=== PATIENT | male | born 1985 | race Caucasian/White ===

== ENCOUNTER 2017-06-23 19:10 | Emergency (ER) | payer SELFPAY ==
[2017-06-23 19:30] VITALS: TEMP 97.8; O2SAT 98
--- NOTE | 2017-06-23 19:49 | C.PDOC ---
History Of Present Illness 31 y/o male c/o blood in sputum since this morning. Patient reports that when he wakes up he clears his throat and noticed blood in his sputum and later noticed mild epistaxis which has since resolved. Patient denies cough, fever, chills, congestion, or SOB. No weight loss or night sweats. Patient notes that he recently came back from [place] 4 months ago and he is concerned of ?chest infections. Time Seen by Provider: 06/23/17 19:27 Chief Complaint (Nursing): Cough, Cold, Congestion History Per: Patient History/Exam Limitations: no limitations Onset/Duration Of Symptoms: Hrs Current Symptoms Are (Timing): Still Present Severity: Mild Recent travel outside of the [place]: No Additional History Per: Patient Past Medical History Reviewed: Historical Data, Nursing Documentation, Vital Signs Vital Signs: Last Vital Signs Temp 97.8 F 06/23/17 19:18 Pulse 73 06/23/17 20:17 Resp 18 06/23/17 20:17 BP 120/69 06/23/17 20:17 Pulse Ox 98 06/23/17 20:17 Family History: States: Unknown Family Hx - Social History Hx Tobacco Use: No (Second hand smoking) Hx Alcohol Use: No Hx Substance Use: No - Immunization History Hx Tetanus Toxoid Vaccination: No Hx Influenza Vaccination: No Hx Pneumococcal Vaccination: No Review Of Systems Constitutional: Negative for: Fever, Chills, Sweats (Night sweats), Weight loss ENT: Positive for: Other (Blood in sputum and epistaxis). Negative for: Nose Congestion Respiratory: Negative for: Cough, Shortness of Breath Physical Exam - Physical Exam Appears: Non-toxic, No Acute Distress Skin: Warm, Dry Head: Atraumatic, Normacephalic Eye(s): bilateral: Normal Inspection Nose: No Epistaxis Oral Mucosa: Moist Throat: Normal, No Erythema Neck: Normal, No Other (swelling) Chest: Symmetrical Cardiovascular: Rhythm Regular, No Murmur Respiratory: Normal Breath Sounds, No Rales, No Rhonchi, No Wheezing Neurological/Psych: Oriented x3 Gait: Steady ED Course And Treatment O2 Sat by Pulse Oximetry: 98 Pulse Ox Interpretation: Normal - Radiology CXR Interpretation: Yes: No Acute Disease Progress Note: Plans: CXR reviewed. Pt reassured and advised PMD F/U Disposition - Disposition Referrals: Destiny Galarza MD [Staff Provider] - Disposition: HOME/ ROUTINE Disposition Time: 20:12 Condition: STABLE Additional Instructions: Please follwo up with Dr Starr Increase fluids Return to ER if worse Forms: [facility] ([place]) - Clinical Impression Clinical Impression: Epistaxis, Upper respiratory infection - Scribe Statement The provider has reviewed the documentation as recorded by the Scribe Frank butterfield All medical record entries made by the Scribe were at my direction and personally dictated by me. I have reviewed the chart and agree that the record accurately reflects my personal performance of the history, physical exam, medical decision making, and the department course for this patient. I have also personally directed, reviewed, and agree with the discharge instructions and disposition.
[2017-06-23 20:17] VITALS: BP 120/69; PULSE 73; RESP 18
== END 2017-06-23 20:18 | disposition home or self-care (01) ==
LOC: C.ER 19:10
DX: R04.0 Epistaxis (principal); J06.9 Acute upper respiratory infection, unspecified